=== PATIENT | female | born 1975 | race Caucasian/White ===

== ENCOUNTER 2018-05-29 14:49 | Inpatient (IN) ==
[2018-05-29 16:32] LABS: Clarity,Urine Hazy (Clear); Color,Urine Yellow (Yellw/Straw); Glucose,Urine (UA) Negative (Negative); Specific Gravity,Urine 1.021 (1.002-1.035)
[2018-05-29 16:33] LABS: Bacteria,Urine Occasional /hpf; Bilirubin,Urine Negative (Negative); Leukocyte Esterase,Urine Negative (Negative); Mucus,Urine Few /lpf (Occasional); Nitrite,Urine Negative (Negative); Squamous Epithelial Cell,Urine 8 /hpf (0-5)
[2018-05-29 17:47] LABS: Baso # (Auto) 0.1 th/mm3 (0.0-0.2); Baso % (Auto) 0.6 % (0.0-2.0); Eos # (Auto) 0.1 th/mm3 (0.0-0.4); Eos % (Auto) 1.7 % (0.0-4.0); Hematocrit 39.6 % (35.0-46.0); Hemoglobin 13.1 gm/dL (11.6-15.3); Lymph # (Auto) 1.6 th/mm3 (1.0-4.8); Lymph % (Auto) 19.2 % (9.0-44.0); Mean Corpuscular HGB Conc 33.2 % (32.0-36.0); Mean Corpuscular Hemoglobin 27.6 pg (27.0-34.0); Mean Corpuscular Volume 83.1 fL (80.0-100.0); Mean Platelet Volume 8.8 fL (7.0-11.0); Mono # (Auto) 0.6 th/mm3 (0.0-0.9); Mono % (Auto) 6.9 % (0.0-8.0); Neut # (Auto) 5.9 th/mm3 (1.8-7.7); Neut % (Auto) 71.6 % (16.0-70.0); Platelet Count 331 th/mm3 (150-450); Red Blood Count 4.77 mil/mm3 (4.00-5.30); Red Cell Distribution Width 14.1 % (11.6-17.2); White Blood Count 8.2 th/mm3 (4.0-11.0)
[2018-05-29 18:09] LABS: Alanine Aminotransferase 24 U/L (10-53); Albumin 3.7 g/dL (3.4-5.0); Anion Gap 4 meq/L (5-15); Aspartate Aminotransferase 19 U/L (15-37); Blood Urea Nitrogen 11 mg/dL (7-18); Calcium 9.2 mg/dL (8.5-10.1); Carbon Dioxide 30.7 meq/L (21.0-32.0); Chloride 107 meq/L (98-107); Glomerular Filtration Rate 85 mL/min (>89); Glucose,Random 84 mg/dL (74-106); Potassium 3.8 meq/L (3.5-5.1); Sodium 142 meq/L (136-145)
[2018-05-29 18:19] LABS: Alkaline Phosphatase 93 U/L (45-117); Total Protein 7.4 g/dL (6.4-8.2)
--- NOTE | 2018-05-29 19:07 | ED ---
HPI General Chief Complaint: Psychiatric Symptoms Stated Complaint: Psych Eval Time Seen by Provider: 05/29/18 18:02 Source: patient Mode of arrival: ambulatory Limitations: no limitations History of Present Illness HPI Narrative: 42-year-old female presents to the emergency department under [place]o act. She is homeless and was discharged this morning with malingering. She returns with superficial cuts to her forearm and stating that she is going to kill herself with a knife by stabbing herself in the heart. She denies history of suicidal attempts. Denies homicidal ideations. Says she has had thoughts of suicide and homicide in the past. Denies hallucinations. Reports smoking marijuana. Reports tobacco use and socially using alcohol. Denies chest pain, shortness breath, abdominal pain, change in urine or stool, nausea, vomiting. Has not taken any medications or try treatments to alleviate her symptoms. Symptoms are moderate to severe in severity. Symptoms are most likely aggravated by being homeless. No known relieving factors. Onset unknown. Duration unknown. No primary care provider. No known allergies. Denies significant past medical history. No other modifying factors or associated signs and symptoms. Related Data Home Medications Medication Instructions Recorded Confirmed No Known Home Medications 05/28/18 05/29/18 Previous Rx's Medication Instructions Recorded lurasidone [Latuda] 40 mg PO AC DINNER 10 Days tab 06/02/18 Allergies Allergy/AdvReac Type Severity Reaction Status Date / Time No Known Allergies Allergy Verified 05/29/18 15:09 Review of Systems ROS Unobtainable All other systems reviewed negative except as stated in HPI [facility] Medical History Medical History Depression (Acute) Anxiety (Acute) Bipolar 1 disorder (Acute) Gestational diabetes (Acute) Social History Social History Substance History: Past History Second Hand Smoke Exposure: No Smoking Status: Former smoker Tobacco Type: E-Cigarettes How Often Do You Have a Drink Containing Alcohol: Monthly or less Immunization History Tetanus Immunization: Unable to Assess Hx Influenza Vaccine This Season: Unable to Assess Exam Narrative Exam Narrative: GENERAL: Well-nourished, well-developed female patient , in no acute distress SKIN: Warm and dry. HEAD: Atraumatic. Normocephalic. EYES: Pupils equal and round. ENT: Mucosa pink and moist. NECK: Supple. Trachea midline. CARDIOVASCULAR: Regular rate and rhythm. No murmur appreciated. RESPIRATORY: No accessory muscle use. Clear to auscultation. Breath sounds equal bilaterally. GASTROINTESTINAL: Abdomen soft, non-tender, nondistended. Hepatic and splenic margins not palpable. Bowel sounds are active 4 quadrants. MUSCULOSKELETAL: No obvious deformities. No clubbing. No cyanosis. No edema. BACK: No CVA tenderness. NEUROLOGICAL: Awake and alert. Oriented 3. No obvious cranial nerve deficits. Motor grossly within normal limits. Normal speech. Moves all extremities. 5/5 strength to all extremities. PSYCHIATRIC: No delusional thought processes. No hallucinations. Course Initial Documented Vital Signs Temperature 98.5 F 05/29/18 14:59 Pulse Rate 95 H 05/29/18 14:59 Respiratory Rate 18 05/29/18 14:59 Blood Pressure 136/88 05/29/18 14:59 Pulse Oximetry 97 05/29/18 14:59 Last Documented Vital Signs Temperature 98.3 F 06/02/18 06:15 Pulse Rate 94 H 06/02/18 06:15 Respiratory Rate 18 06/02/18 06:15 Blood Pressure 129/74 06/02/18 06:15 Pulse Oximetry 99 06/02/18 06:[address] [facility] Narrative Medical decision making narrative: Patient presents under a Arevalo act. Physical examination and vital signs are essentially unremarkable. Patient has no medical complaints to report. Psych screen has been ordered. If the laboratory results are unremarkable, the patient will be medically cleared for psychiatric evaluation and disposition. Lab Data Result diagrams: 05/29/18 14:58 05/31/18 07:57 Lab Results 05/29/18 05/29/18 05/29/18 Range/Units 14:58 14:58 14:58 WBC 8.2 (4.0-11.0) th/mm3 RBC 4.77 (4.00-5.30) mil/mm3 Hgb 13.1 (11.6-15.3) gm/dL Hct 39.6 (35.0-46.0) % MCV 83.1 (80.0-100.0) fL MCH 27.6 (27.0-34.0) pg MCHC 33.2 (32.0-36.0) % RDW 14.1 (11.6-17.2) % Plt Count 331 (150-450) th/mm3 MPV 8.8 (7.0-11.0) fL Neut % (Auto) 71.6 H (16.0-70.0) % Lymph % (Auto) 19.2 (9.0-44.0) % Cobb % (Auto) 6.9 (0.0-8.0) % Eos % (Auto) 1.7 (0.0-4.0) % Baso % (Auto) 0.6 (0.0-2.0) % Neut # (Auto) 5.9 (1.8-7.7) th/mm3 Lymph # (Auto) 1.6 (1.0-4.8) th/mm3 [place] # (Auto) 0.6 (0.0-0.9) th/mm3 Eos # (Auto) 0.1 (0.0-0.4) th/mm3 Baso # (Auto) 0.1 (0.0-0.2) th/mm3 WBC Differential . Differential Comment Auto diff final Sodium 142 (136-145) meq/L Potassium 3.8 (3.5-5.1) meq/L Chloride 107 (98-107) meq/L Carbon Dioxide 30.7 (21.0-32.0) meq/L Anion Gap 4 L (5-15) meq/L BUN 11 (7-18) mg/dL Creatinine 0.74 (0.50-1.00) mg/dL Estimated GFR 85 L (>89) mL/min Random Glucose 84 (74-106) mg/dL Hemoglobin A1c (4.3-6.0) % Calcium 9.2 (8.5-10.1) mg/dL Total Bilirubin 0.2 (0.2-1.0) mg/dL AST 19 (15-37) U/L ALT 24 (10-53) U/L Alkaline Phosphatase 93 (45-117) U/L Total Protein 7.4 (6.4-8.2) g/dL Albumin 3.7 (3.4-5.0) g/dL Triglycerides (42-150) mg/dL Cholesterol (120-200) mg/dL LDL Cholesterol, Calc (0-99) mg/dL HDL Cholesterol (40.0-60.0) mg/dL Cholesterol/HDL Ratio Ratio TSH 2.480 (0.358-3.740) uIU/mL Beta HCG, Qual (0-5) mIU/mL Urine Color (Yellw/Straw) Urine Clarity (Clear) Urine pH (5.0-8.5) Ur Specific [place] (1.002-1.035) Urine Protein (Neg-Trace) mg/dL Urine Glucose (UA) (Negative) mg/dL Urine Ketones (Negative) mg/dL Urine Occult Blood (Negative) Urine Nitrate (Negative) Urine Bilirubin (Negative) Urine Urobilinogen (Less than 2) mg/dL Ur Leukocyte Esterase (Negative) Urine RBC (0-3) /hpf Urine WBC (0-5) /hpf Ur Squamous Epith Cells (0-5) /hpf Urine Bacteria (None) /hpf Urine Mucus (Occasional) /lpf Micro UA Comment Urine Culture Comments Salicylates Less than 1.7 L (2.8-20.0) mg/dL Urine Opiates Screen (Neg) Acetaminophen Less than 2.0 L (10.0-30.0) mcg/mL Ur Barbiturates Screen (Neg) Ur Amphetamines Screen (Neg) U Benzodiazepines Scrn (Neg) Urine Cocaine Screen (Neg) U Cannabinoids Screen (Neg) Serum Alcohol Less than 3 (0-5) mg/dL 05/29/18 05/29/18 05/31/18 Range/Units 16:04 16:04 07:57 WBC (4.0-11.0) th/mm3 RBC (4.00-5.30) mil/mm3 Hgb (11.6-15.3) gm/dL Hct (35.0-46.0) % MCV (80.0-100.0) fL MCH (27.0-34.0) pg MCHC (32.0-36.0) % RDW (11.6-17.2) % Plt Count (150-450) th/mm3 MPV (7.0-11.0) fL Neut % (Auto) (16.0-70.0) % Lymph % (Auto) (9.0-44.0) % Cobb % (Auto) (0.0-8.0) % Eos % (Auto) (0.0-4.0) % Baso % (Auto) (0.0-2.0) % Neut # (Auto) (1.8-7.7) th/mm3 Lymph # (Auto) (1.0-4.8) th/mm3 [place] # (Auto) (0.0-0.9) th/mm3 Eos # (Auto) (0.0-0.4) th/mm3 Baso # (Auto) (0.0-0.2) th/mm3 WBC Differential Differential Comment Sodium 140 (136-145) meq/L Potassium 4.0 (3.5-5.1) meq/L Chloride 103 (98-107) meq/L Carbon Dioxide 28.6 (21.0-32.0) meq/L Anion Gap 8 (5-15) meq/L BUN 10 (7-18) mg/dL Creatinine 0.73 (0.50-1.00) mg/dL Estimated GFR 87 L (>89) mL/min Random Glucose 83 (74-106) mg/dL Hemoglobin A1c (4.3-6.0) % Calcium 9.3 (8.5-10.1) mg/dL Total Bilirubin (0.2-1.0) mg/dL AST (15-37) U/L ALT (10-53) U/L Alkaline Phosphatase (45-117) U/L Total Protein (6.4-8.2) g/dL Albumin (3.4-5.0) g/dL Triglycerides 134 (42-150) mg/dL Cholesterol 219 H (120-200) mg/dL LDL Cholesterol, Calc 133 H (0-99) mg/dL HDL Cholesterol 59.2 (40.0-60.0) mg/dL Cholesterol/HDL Ratio 3.69 Ratio TSH (0.358-3.740) uIU/mL Beta HCG, Qual (0-5) mIU/mL Urine Color Yellow (Yellw/Straw) Urine Clarity Hazy H (Clear) Urine pH 6.0 (5.0-8.5) Ur Specific [place] 1.021 (1.002-1.035) Urine Protein Negative (Neg-Trace) mg/dL Urine Glucose (UA) Negative (Negative) mg/dL Urine Ketones Negative (Negative) mg/dL Urine Occult Blood Negative (Negative) Urine Nitrate Negative (Negative) Urine Bilirubin Negative (Negative) Urine Urobilinogen 2.0 H (Less than 2) mg/dL Ur Leukocyte Esterase Negative (Negative) Urine RBC 2 (0-3) /hpf Urine WBC 1 (0-5) /hpf Ur Squamous Epith Cells 8 (0-5) /hpf Urine Bacteria Occasional H (None) /hpf Urine Mucus Few H (Occasional) /lpf Micro UA Comment Culture not ind Urine Culture Comments Culture not ind Salicylates (2.8-20.0) mg/dL Urine Opiates Screen Neg (Neg) Acetaminophen (10.0-30.0) mcg/mL Ur Barbiturates Screen Neg (Neg) Ur Amphetamines Screen Neg (Neg) U Benzodiazepines Scrn Neg (Neg) Urine Cocaine Screen Neg (Neg) U Cannabinoids Screen Neg (Neg) Serum Alcohol (0-5) mg/dL 05/31/18 05/31/18 Range/Units 07:57 07:57 WBC (4.0-11.0) th/mm3 RBC (4.00-5.30) mil/mm3 Hgb (11.6-15.3) gm/dL Hct (35.0-46.0) % MCV (80.0-100.0) fL MCH (27.0-34.0) pg MCHC (32.0-36.0) % RDW (11.6-17.2) % Plt Count (150-450) th/mm3 MPV (7.0-11.0) fL Neut % (Auto) (16.0-70.0) % Lymph % (Auto) (9.0-44.0) % Cobb % (Auto) (0.0-8.0) % Eos % (Auto) (0.0-4.0) % Baso % (Auto) (0.0-2.0) % Neut # (Auto) (1.8-7.7) th/mm3 Lymph # (Auto) (1.0-4.8) th/mm3 Cobb # (Auto) (0.0-0.9) th/mm3 Eos # (Auto) (0.0-0.4) th/mm3 Baso # (Auto) (0.0-0.2) th/mm3 WBC Differential Differential Comment Sodium (136-145) meq/L Potassium (3.5-5.1) meq/L Chloride (98-107) meq/L Carbon Dioxide (21.0-32.0) meq/L Anion Gap (5-15) meq/L BUN (7-18) mg/dL Creatinine (0.50-1.00) mg/dL Estimated GFR (>89) mL/min Random Glucose (74-106) mg/dL Hemoglobin A1c 5.6 (4.3-6.0) % Calcium (8.5-10.1) mg/dL Total Bilirubin (0.2-1.0) mg/dL AST (15-37) U/L ALT (10-53) U/L Alkaline Phosphatase (45-117) U/L Total Protein (6.4-8.2) g/dL Albumin (3.4-5.0) g/dL Triglycerides (42-150) mg/dL Cholesterol (120-200) mg/dL LDL Cholesterol, Calc (0-99) mg/dL HDL Cholesterol (40.0-60.0) mg/dL Cholesterol/HDL Ratio Ratio TSH (0.358-3.740) uIU/mL Beta HCG, Qual Less than 1.0 (0-5) mIU/mL Urine Color (Yellw/Straw) Urine Clarity (Clear) Urine pH (5.0-8.5) Ur Specific [place] (1.002-1.035) Urine Protein (Neg-Trace) mg/dL Urine Glucose (UA) (Negative) mg/dL Urine Ketones (Negative) mg/dL Urine Occult Blood (Negative) Urine Nitrate (Negative) Urine Bilirubin (Negative) Urine Urobilinogen (Less than 2) mg/dL Ur Leukocyte Esterase (Negative) Urine RBC (0-3) /hpf Urine WBC (0-5) /hpf Ur Squamous Epith Cells (0-5) /hpf Urine Bacteria (None) /hpf Urine Mucus (Occasional) /lpf Micro UA Comment Urine Culture Comments Salicylates (2.8-20.0) mg/dL Urine Opiates Screen (Neg) Acetaminophen (10.0-30.0) mcg/mL Ur Barbiturates Screen (Neg) Ur Amphetamines Screen (Neg) U Benzodiazepines Scrn (Neg) Urine Cocaine Screen (Neg) U Cannabinoids Screen (Neg) Serum Alcohol (0-5) mg/dL Discharge Plan Discharge Disposition Patient Disposition: 01 Discharge Home Discharge Condition Condition: Stable Discharge Order Discharge Orders: Discharge Order (Routine); Ordered 06/02/18 Ordered By: Daron Serrano Discharge Details Anticipated Discharge Date: 06/02/18 Physicians Team ED Provider: Rob Marcial ED Midlevel Provider: Mira Jade Primary Care Provider: Primary Care Gabbie Spencer Attending Provider: Daron Serrano Other Providers: Utilizer,SM High Service Status ED Status: Left Department Discharge Information Discharge Date/Time: 05/30/18 14:16
[2018-05-29 19:43] LABS: Amphetamine Screen,Urine Neg (Neg); Barbiturate Screen,Urine Neg (Neg); Cannabinoid Screen,Urine Neg (Neg); Cocaine Screen,Urine Neg (Neg)
[2018-05-29 19:44] LABS: Opiate Screen,Urine Neg (Neg)
[2018-05-30] MEDS ORDERED: Aluminum/Magnesium/Simethacone Susp 30 ML UDC PO PRN (12:50)
--- NOTE | 2018-05-30 13:38 | ED ---
HPI - Psych - General Source: patient Mode of arrival: ambulatory Limitations: no limitations - History of Present Illness complaint: suicidal ideation Onset (ago): day(s) Duration: intermittent History of same: Yes Relieving factors: other (Having a place to live) Exacerbating factors: none (Being homeless) Context: significant life stressor Associated psychiatric symptoms: depression Associated symptoms: denies other symptoms Treatments prior to arrival: none If self harm: admits thoughts of self harm - General Chief Complaint: Psychiatric Symptoms Stated Complaint: Psych Eval Time Seen by Provider: 05/29/18 18:02 - History of Present Illness HPI Narrative: This is a 42 year old single, female who presents under [place]o act to this facility for reportedly cutting herself and reporting to police that she wanted to stab herself. Patient was seen and discharged from this facility yesterday for malingering. Reviewed electronic medical record, labs, and discussed case with staff. Patient's toxicology screen is negative. Patient was evaluated in her room and J pod with Mo student present. She was found sleeping soundly, snoring, and in no apparent distress. She awakens to verbal stimuli. She is alert and oriented 4. Her speech is clear, logical, and organized. She endorses suicidal ideation of being homeless. She reports feeling somewhat homicidal. She denies auditory or visual hallucinations. I can elicit no delusional material. There is no indication of internal stimulation or thought blocking. Her mood and affect quickly become irritable during the interview. She reports that she is homeless, helpless, and hopeless. She is slightly disheveled and appears younger than her reported age. Her interactions with this provider somewhat childlike as well at times. When asked why she is here the patient states, "I just want to kill myself". She then launches into a story about her boyfriend being in skilled nursing. She quickly becomes irritable with this provider and needed to be reminded that I was not the reason for her boyfriend being in skilled nursing. She seems to have some strong cluster B personality traits present. The provider who discharged her yesterday reported that she immediately began referring to her as "bitch" when she was told she was not being admitted. Today she again goes on a tirade stating how "nobody wants to do anything for me". After being discharged yesterday the patient inflicted some superficial cuts to her left wrist. She denies any previous history of cutting. When asked why she cut herself she again began to loudly and verbally berate this provider exhibiting some potential borderline personality traits. She reports that she moved here in March. She states that she has been admitted inpatient previously in [place], [place] approximately 1 year ago. She is initially unable to provide her diagnoses but states that she has taken Wellbutrin, Abilify, and BuSpar in the past. She denies currently taking any of these medications citing a loss of insurance as the cause. She reports that she is on Social Security disability due to her mental illness. She denies any family history of suicide attempt or mental illness diagnoses. She states that she uses a vape, drinks socially, and smokes weed occasionally. She reports that she finished the 12th grade but states, "I am learning disabled". (Melisa Chang) - Related Data Home Medications Medication Instructions Recorded Confirmed No Known Home Medications 05/28/18 05/29/18 Allergies Allergy/AdvReac Type Severity Reaction Status Date / Time No Known Allergies Allergy Verified 05/29/18 15:09 [facility] - History History Provided By: Patient - Medical History Medical History: Medical History (Last Reviewed 05/30/18 @ 13:01 by CHIDI Hoffman) Depression (Acute) Anxiety (Acute) Bipolar 1 disorder (Acute) Gestational diabetes (Acute) - Surgical History Surgical History: Surgical History (Last Reviewed 05/30/18 @ 13:01 by CHIDI Hoffman) History of (Acute) - Tobacco History Second Hand Smoke Exposure: Yes Tobacco Use In Past 30 Days: Yes Smoking Status: Current every day smoker Tobacco Type: Smokeless Tobacco - Alcohol History How Often Do You Have a Drink Containing Alcohol: Monthly or less - Substance Use History Substance History: No History of Abuse - Immunization History Tetanus Immunization: Unable to Assess Hx Influenza Vaccine This Season: Unable to Assess Psychiatric History - Psychiatric History Psychiatric Treatment History: History of Psychiatric Treatment, History of Hospitalization in a Psychiatric Facility History of Inpatient Treatment: Yes (In [facility] proximally 1 year ago) Firearms in Home: No - Legal History Denies (Melisa Chang) - Family Psychiatric History Denies (Melisa Chang) Physical Exam - General Limitations: no limitations - Head Head exam: atraumatic - Eye Eye exam: Present: normal appearance - Psychiatric Psychiatric exam: Present: normal affect, depressed (Self-reported) Mental Status Examination Appearance: Appropriate Consciousness: Alert Orientation: x4 Motor Activity: Normal gait Speech: Unremarkable Language: Adequate Fund of Knowledge: Adequate Attention and Concentration: Adequate Memory: Unremarkable Mood: Irritable Affect: Irritable (On admission) Thought Process & Associations: Goal directed (On admission) Thought Content: Appropriate Hallucination Type: None Delusion Type: None Suicidal Ideation: Yes Suicidal Plan: Yes (Reported to police that she would "stab herself".) Suicidal Intention: No Homicidal Ideation: No Homicidal Plan: No Homicidal Intention: No Insight: Adequate Judgment: Impulsive Initial Documented Vital Signs Temperature 98.5 F 05/29/18 14:59 Pulse Rate 95 H 05/29/18 14:59 Respiratory Rate 18 05/29/18 14:59 Blood Pressure 136/88 05/29/18 14:59 Pulse Oximetry 97 05/29/18 14:59 Last Documented Vital Signs Temperature 98.3 F 05/30/18 07:27 Pulse Rate 89 05/30/18 07:27 Respiratory Rate 12 05/30/18 07:27 Blood Pressure 160/91 H 05/30/18 07:27 Pulse Oximetry 99 05/30/18 07:27 MDM - Psych - Lab Data Result diagrams: 05/29/18 14:58 05/29/18 14:58 - [facility] Narrative Medical decision making narrative: While it is highly unlikely that this patient will receive any therapeutic benefit from an inpatient admission and I strongly feel that her actions were in the manipulative in nature the secondary gain of fpc, I will admit her to the 2700 unit for observation out of an over abundance of caution. (Melisa Chang) - Lab Data Lab Results 05/29/18 05/29/18 05/29/18 Range/Units 14:58 14:58 14:58 WBC 8.2 (4.0-11.0) th/mm3 RBC 4.77 (4.00-5.30) mil/mm3 Hgb 13.1 (11.6-15.3) gm/dL Hct 39.6 (35.0-46.0) % MCV 83.1 (80.0-100.0) fL MCH 27.6 (27.0-34.0) pg MCHC 33.2 (32.0-36.0) % RDW 14.1 (11.6-17.2) % Plt Count 331 (150-450) th/mm3 MPV 8.8 (7.0-11.0) fL Neut % (Auto) 71.6 H (16.0-70.0) % Lymph % (Auto) 19.2 (9.0-44.0) % [place] % (Auto) 6.9 (0.0-8.0) % Eos % (Auto) 1.7 (0.0-4.0) % Baso % (Auto) 0.6 (0.0-2.0) % Neut # (Auto) 5.9 (1.8-7.7) th/mm3 Lymph # (Auto) 1.6 (1.0-4.8) th/mm3 [place] # (Auto) 0.6 (0.0-0.9) th/mm3 Eos # (Auto) 0.1 (0.0-0.4) th/mm3 Baso # (Auto) 0.1 (0.0-0.2) th/mm3 WBC Differential . Differential Comment Auto diff final Sodium 142 (136-145) meq/L Potassium 3.8 (3.5-5.1) meq/L Chloride 107 (98-107) meq/L Carbon Dioxide 30.7 (21.0-32.0) meq/L Anion Gap 4 L (5-15) meq/L BUN 11 (7-18) mg/dL Creatinine 0.74 (0.50-1.00) mg/dL Estimated GFR 85 L (>89) mL/min Random Glucose 84 (74-106) mg/dL Calcium 9.2 (8.5-10.1) mg/dL Total Bilirubin 0.2 (0.2-1.0) mg/dL AST 19 (15-37) U/L ALT 24 (10-53) U/L Alkaline Phosphatase 93 (45-117) U/L Total Protein 7.4 (6.4-8.2) g/dL Albumin 3.7 (3.4-5.0) g/dL TSH 2.480 (0.358-3.740) uIU/mL Urine Color (Yellw/Straw) Urine Clarity (Clear) Urine pH (5.0-8.5) Ur Specific [place] (1.002-1.035) Urine Protein (Neg-Trace) mg/dL Urine Glucose (UA) (Negative) mg/dL Urine Ketones (Negative) mg/dL Urine Occult Blood (Negative) Urine Nitrate (Negative) Urine Bilirubin (Negative) Urine Urobilinogen (Less than 2) mg/dL Ur Leukocyte Esterase (Negative) Urine RBC (0-3) /hpf Urine WBC (0-5) /hpf Ur Squamous Epith Cells (0-5) /hpf Urine Bacteria (None) /hpf Urine Mucus (Occasional) /lpf Micro UA Comment Urine Culture Comments Salicylates Less than 1.7 L (2.8-20.0) mg/dL Urine Opiates Screen (Neg) Acetaminophen Less than 2.0 L (10.0-30.0) mcg/mL Ur Barbiturates Screen (Neg) Ur Amphetamines Screen (Neg) U Benzodiazepines Scrn (Neg) Urine Cocaine Screen (Neg) U Cannabinoids Screen (Neg) Serum Alcohol Less than 3 (0-5) mg/dL 05/29/18 05/29/18 Range/Units 16:04 16:04 WBC (4.0-11.0) th/mm3 RBC (4.00-5.30) mil/mm3 Hgb (11.6-15.3) gm/dL Hct (35.0-46.0) % MCV (80.0-100.0) fL MCH (27.0-34.0) pg MCHC (32.0-36.0) % RDW (11.6-17.2) % Plt Count (150-450) th/mm3 MPV (7.0-11.0) fL Neut % (Auto) (16.0-70.0) % Lymph % (Auto) (9.0-44.0) % [place] % (Auto) (0.0-8.0) % Eos % (Auto) (0.0-4.0) % Baso % (Auto) (0.0-2.0) % Neut # (Auto) (1.8-7.7) th/mm3 Lymph # (Auto) (1.0-4.8) th/mm3 [place] # (Auto) (0.0-0.9) th/mm3 Eos # (Auto) (0.0-0.4) th/mm3 Baso # (Auto) (0.0-0.2) th/mm3 WBC Differential Differential Comment Sodium (136-145) meq/L Potassium (3.5-5.1) meq/L Chloride (98-107) meq/L Carbon Dioxide (21.0-32.0) meq/L Anion Gap (5-15) meq/L BUN (7-18) mg/dL Creatinine (0.50-1.00) mg/dL Estimated GFR (>89) mL/min Random Glucose (74-106) mg/dL Calcium (8.5-10.1) mg/dL Total Bilirubin (0.2-1.0) mg/dL AST (15-37) U/L ALT (10-53) U/L Alkaline Phosphatase (45-117) U/L Total Protein (6.4-8.2) g/dL Albumin (3.4-5.0) g/dL TSH (0.358-3.740) uIU/mL Urine Color Yellow (Yellw/Straw) Urine Clarity Hazy H (Clear) Urine pH 6.0 (5.0-8.5) Ur Specific [place] 1.021 (1.002-1.035) Urine Protein Negative (Neg-Trace) mg/dL Urine Glucose (UA) Negative (Negative) mg/dL Urine Ketones Negative (Negative) mg/dL Urine Occult Blood Negative (Negative) Urine Nitrate Negative (Negative) Urine Bilirubin Negative (Negative) Urine Urobilinogen 2.0 H (Less than 2) mg/dL Ur Leukocyte Esterase Negative (Negative) Urine RBC 2 (0-3) /hpf Urine WBC 1 (0-5) /hpf Ur Squamous Epith Cells 8 (0-5) /hpf Urine Bacteria Occasional H (None) /hpf Urine Mucus Few H (Occasional) /lpf Micro UA Comment Culture not ind Urine Culture Comments Culture not ind Salicylates (2.8-20.0) mg/dL Urine Opiates Screen Neg (Neg) Acetaminophen (10.0-30.0) mcg/mL Ur Barbiturates Screen Neg (Neg) Ur Amphetamines Screen Neg (Neg) U Benzodiazepines Scrn Neg (Neg) Urine Cocaine Screen Neg (Neg) U Cannabinoids Screen Neg (Neg) Serum Alcohol (0-5) mg/dL
[2018-05-31 09:07] LABS: Calcium 9.3 mg/dL (8.5-10.1); Carbon Dioxide 28.6 meq/L (21.0-32.0)
[2018-05-31 09:11] LABS: Chol/HDL Ratio 3.69 Ratio; HDL Cholesterol 59.2 mg/dL (40.0-60.0)
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
[2018-05-31] MEDS ORDERED: Acetaminophen 325 MG Tablet PO PRN (13:53)
[2018-05-31 17:32] LABS: Hemoglobin A1c 5.6 % (4.3-6.0)
--- NOTE | 2018-05-31 18:05 | ECG ---
Date Performed: 05/31/2018 Time Performed: 13:42:41 PTAGE: 42 years EKG: Sinus rhythm NORMAL ECG NO PREVIOUS TRACING DOCTOR: Bernardino Wallace Interpretating Date/Time 05/31/2018 18:03:38
[2018-05-31] MEDS ORDERED: traZODone 50 MG Tablet PO PRN (21:00)
--- NOTE | 2018-06-01 11:16 | P.PNPSY ---
Subjective Chief Complaint: Self-injury Remarks: Patient seen and examined with nurse. Chart reviewed. Case discussed with nursing staff. On my examination today, the patient says that she is "just a little sad but not depressed." Affect remains a little dysphoric. Denies SI or HI. Denies AVH. Says that she had been staying in a park prior to admission. Denies side effects from medications. No physical complaints. Vital Signs Temp Pulse Resp BP Pulse Ox 06/01/18 05:47 98.4 F 91 H 17 147/93 H 99 05/31/18 18:08 98.7 F 95 H 17 141/83 H 99 Laboratory Results - last 24 hr 05/31/18 05/31/18 07:57 07:57 Hemoglobin A1c 5.6 Beta HCG, Qual Less than 1.0 Labs reviewed. EKG read as normal sinus rhythm with QTC of 403 ms, not prolonged. Review of Systems All other systems reviewed negative except as stated in HPI Mental Status Examination Appearance: Appropriate Consciousness: Alert Orientation: x4 Motor Activity: Normal gait, Other (No hand tremor, no dystonia, no dyskinesia noted. No other motor abnormalities noted.) Speech: Unremarkable Language: Adequate Fund of Knowledge: Adequate Attention and Concentration: Adequate Memory: Unremarkable Mood: Other (Dysphoric) Affect: Other (Restricted) Thought Process & Associations: Intact, Logical, Linear Thought Content: Appropriate Hallucination Type: None Delusion Type: None Suicidal Ideation: No Suicidal Plan: No Suicidal Intention: No Homicidal Ideation: No Homicidal Plan: No Homicidal Intention: No Insight: Fair Judgment: Impulsive Assessment and Plan - Assessment (1) Adjustment disorder with mixed disturbance of emotions and conduct Code(s): F43.25 - Adjustment disorder with mixed disturbance of emotions and conduct Status: Acute (2) Cluster B personality disorder Code(s): F60.9 - Personality disorder, unspecified Status: Suspected - Plan Plan: Continue Latuda as ordered. To consider further titration of this agent for mood stabilization. Continue to monitor on the inpatient unit. Continue other medications and care as ordered. Justification for Continued Inpatient Stay: Monitoring for impairment in safety, none noted. Discharge Planning: Anticipate discharge by the end of the week. Case discussed with counselor. Request Healthcare Surrogate/Guardian Advocate?: No
[2018-06-01 15:52] VITALS: RESP 18
[2018-06-02 06:16] VITALS: BP 129/74; PULSE 94; TEMP 98.3; O2SAT 99
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
== END 2018-06-02 12:55 | disposition home or self-care (01) ==
LOC: NEPJ 14:49 → NEDA 05-30 12:50 → H270 05-30 14:00
PROVIDERS: ADMIT Psychiatry & Neurology Psychiatry; ATTEND Psychiatry & Neurology Psychiatry